=== PATIENT | male | born 1990 | race African-American/Black ===

== ENCOUNTER 2016-10-05 08:54 | Emergency (ER) | payer SELFPAY ==
[2016-10-05 09:42] VITALS: TEMP 98; BMI 20.2
[2016-10-05 11:03] VITALS: BP 157/78; PULSE 88
--- NOTE | 2016-10-05 11:29 | EDPRACDOC ---
ED Hip Problem HPI - General Information Chief Complaint: Lower Extremity Injury Stated Complaint: HIP AND LEG PAIN Time Seen by Provider: 10/05/16 11:19 Information Source: Patient Home Medications: Home Medications Cyclobenzaprine HCl [Flexeril] 10 mg PO TID #21 tab 10/05/16 Hydrocodone Bit/Acetaminophen [Yeoman 5-325 Tablet] 1 each PO Q4H #15 tab Meloxicam [Mobic] 7.5 mg PO BID #20 tab 10/05/16 Allergies/Adverse Reactions: Allergies Allergy/AdvReac Type Severity Reaction Status Date / Time No Known Allergies Allergy Verified 10/05/16 09:37 - History of Present Illness Onset: past few days HPI: PT PRESENTS TODAY WITH LEFT UPPER/LATERAL THIGH PAIN X 3 DAYS. STATES THERE IS A "LUMP" THERE. UNKNOWN INJURY. DENIES FEVER, RASH, ABD PAIN. STATES DIFFICULT TO AMBULATE D/T PAIN. Hip Problem Location: Reports: Left, Lateral, Anterior, Hip Mechanism: Reports: Unknown Relevant History: Reports: None Able to Bear Weight: Limited Pain Severity: Moderate Associated Signs & Symptoms: Reports: Thigh Pain ED Past Medical History - History Reviewed Yes Nurses notes reviewed and agree except as marked - Social Medical History Smoking Status: Heavy tobacco smoker (5 or more cigarettes/day or daily pipe/ cigar) EDM Review of Systems - Review of Systems ROS Negative Except as Marked: Yes All systems reviewed and were negative except as marked Constitutional: No Symptoms Reported Respiratory: No Symptoms Reported Cardiovascular: No Symptoms Reported Gastrointestinal: No Symptoms Reported Neurological: No Symptoms Reported Musculoskeletal: Femur, Hip Integumentary: No Symptoms Reported - Physical Exam Constitutional: Alert (Awake), Distress Oriented to: Time, Person, Place Last recorded Vital Signs: Last Vital Signs Temp 98 F 10/05/16 09:38 Pulse 88 10/05/16 11:02 Resp 18 10/05/16 11:02 BP 157/78 10/05/16 11:02 Pulse Ox 96 10/05/16 11:02 Oxygen Pulse Oxygen Saturation 96 O2 Device Room Air Oxygen Flow Rate Fraction of Inspired Oxygen ( FIO2) - HEENT Head: Normal Eye Exam: Normal Neck: Normal, Denies Pain, Midline - Respiratory/Cardiovascular Respiratory: Normal - CTA Cardiovascular: Normal - GI Palpation: Normal Tenderness: Non tender - Musculoskeletal Back: Normal Extremities: Other (NOTED LUMP ALONG THE TENSOR FASCIA LATAE MUSCLE; DIFFICULT TO AMBULATE W/OUT PAIN, BUT AMBULATING; PAIN MORE SEVERE WITH ABDUCTION/FLEXION; NO RASHES/BRUISING NOTED; PELVIS STABLE AND NON-TENDER; PEDAL PULSES NORMAL) - Integumentary Skin: Normal Lymphatics: Normal - Neurologic Cerebellar: Normal Mood Description: Normal Thought: Coherent Perception: Normal ED Hip Problem Physical Exam - Musculoskeletal Hip: Normal Hip Deformity: Normal Pelvis: Normal Thigh: Swelling, Moderate Tenderness Back: Normal Distal Function/Circulation: Normal Decision Time to Discharge: 11:25 - Departure Disposition: Home Condition: Good Final Diagnosis: Rupture of quadriceps muscle Qualifiers: Encounter type: initial encounter Laterality: left Qualified Code(s): S76.112A - Strain of left quadriceps muscle, fascia and tendon, initial encounter Instructions: RICE Therapy (ED) Education/Counseling Given To: Patient, Family Member Education/Counseling Given Regarding: Diagnosis, Treatment, Follow Up Referrals: None,No Provider [Primary Care Provider] - One Week DIA HANNA [NonStaff] - One Week Jose Sams MD [Staff Physician] - One Week Prescriptions: New Hydrocodone Bit/Acetaminophen [Yeoman 5-325 Tablet] 1 each PO Q4H #15 tab Meloxicam [Mobic] 7.5 mg PO BID #20 tab Cyclobenzaprine HCl [Flexeril] 10 mg PO TID #21 tab Forms: Excuse Note Additional Instructions: HEATING PADS TO MUSCLES FOR ADDITIONAL RELIEF. AVOID STRENUOUS EXERCISE. FOLLOW UP WITH PCP/ORTHO IF SYMPTOMS PERSIST.
== END 2016-10-05 11:32 | disposition home or self-care (01) ==
LOC: EDMC 08:54
DX: S76.112A Strain of left quadriceps muscle, fascia and tendon, initial encounter (principal); X58.XXXA Exposure to other specified factors, initial encounter; Y93.9 Activity, unspecified
CPT/HCPCS: 99282